=== PATIENT | male | born 1945 | race Caucasian/White ===

== ENCOUNTER 2020-04-30 19:52 | Emergency (ER) | payer MEDICARE, OTHER ==
[~2020-04-30] VITALS: Ht 175.3 cm; Wt 65.8 kg
[2020-04-30] MEDS ORDERED: IV NORMAL SALINE 1000 ML BAG IV ONE (21:00)
--- NOTE | 2020-04-30 21:10 | NUR ---
Patient refused blood work or iv insertion, patient is A/Ox3, ERMD made aware.
[2020-04-30 21:13] LABS: *OCCULT BLOOD STOOL NEGATIVE (NEGATIVE)
--- NOTE | 2020-05-01 00:36 | NUR ---
Daughter Ladonna aware of patient return to facility, facility will be waiting for patient.
--- NOTE | 2020-05-01 01:18 | NUR ---
Patient cleared to discharge to his home facility per Dr. Pola MD. Spoke with Daughter Ladonna. She is aware.
--- NOTE | 2020-05-01 03:25 | NUR ---
Patient discharged to home facility by way of [facility] ambulance service.
[2020-05-01] MEDS ORDERED: MIDAZOLAM HCL 2 MG/2 ML VIAL ONE ×2 (03:31→03:32)
== END 2020-05-01 03:25 ==
LOC: ER 19:54
DX: R10.9 Unspecified abdominal pain (principal); R19.5 Other fecal abnormalities; R00.0 Tachycardia, unspecified; I69.351 Hemiplegia and hemiparesis following cerebral infarction affecting right dominant side; I69.320 Aphasia following cerebral infarction; Z20.828 Contact with and (suspected) exposure to other viral communicable diseases
CPT/HCPCS: 71045; 82270; 87426; 93005; 99285; J2250; U0003; A4663